=== PATIENT | male | born 1960 | race Caucasian/White ===

== ENCOUNTER 2017-06-13 12:48 | Emergency (ER) | payer BC ==
[~2017-06-13] VITALS: Ht 180.3 cm; Wt 85.5 kg
[~2017-06-13 12:48] MED LIST: ALTACE1.25 MG PO; ASPIRIN E.C.81 M1 PO; COLACE100 MG PO; Flexeril PO; Glucotrol PO; JANUMET 50/11 TABLET PO; LIPITOR40 MG PO; PERCOCET 10/1 TABLET PO; PERCOCET 5/31 TABLET PO; PROTONIX40 MG PO
[2017-06-13] MEDS ORDERED: MEDROL DOSEPAK4 MG PO (17:32)
[2017-06-13 17:59] VITALS: BP 165/93
== END 2017-06-13 18:00 | disposition home or self-care (01) ==
LOC: EME 12:48
DX: M21.371 Foot drop, right foot (principal); E11.9 Type 2 diabetes mellitus without complications; K21.9 Gastro-esophageal reflux disease without esophagitis; Z79.82 Long term (current) use of aspirin; F17.200 Nicotine dependence, unspecified, uncomplicated; Z79.84 Long term (current) use of oral hypoglycemic drugs
CPT/HCPCS: 72100; 72148; 99281; 99283

== ENCOUNTER → 2017-06-30 | Outpatient (CLI) | payer BC ==
[~2017-06-30] MED LIST changes: +MEDROL DOSEPAK4 MG PO
== END | disposition home or self-care (01) ==
LOC: CDC 09:41
DX: M21.379 Foot drop, unspecified foot (principal); R00.0 Tachycardia, unspecified
CPT/HCPCS: 93000